=== PATIENT | male | born 1985 | race Caucasian/White ===

== ENCOUNTER → 2017-07-07 | Outpatient (CLI) | payer OTHER ==
[2017-07-07 18:11] LABS: LYME DISEASE AB IGG NEG (NEG)
[2017-07-07 18:14] LABS: LYME DISEASE AB IGM EQUIVOCAL (NEG)
[2017-07-07 18:19] LABS: BLOOD UREA NITROGEN 14 mg/dl (7-18); BUN/CREATININE RATIO 13.3 (10-20); CALCIUM 9.3 mg/dl (8.5-10.1); CARBON DIOXIDE 24 mmol/L (21-32); CHLORIDE 107 mmol/L (98-107); CHOLESTEROL 221 mg/dl (0-200); CREATININE 1.05 mg/dl (0.60-1.40); GLUCOSE,FASTING 102 mg/dl (70-99); POTASSIUM 4.3 mmol/L (3.5-5.1); SODIUM 137 mmol/L (136-145)
[2017-07-07 18:20] LABS: CHOLESTEROL/HDL RATIO 9.6; HDL CHOLESTEROL 23 mg/dl; LDL CHOLESTEROL CALCULATED 140 mg/dl; TRIGLYCERIDES 290 mg/dl (0-150); VERY LOW DENSITY LIPOPROT CALC 58 mg/dl
== END | disposition home or self-care (01) ==
LOC: C.LABPBG 13:17
PROVIDERS: ATTEND Physician Assistant
DX: Z00.00 Encounter for general adult medical examination without abnormal findings (principal); T14.90XA Injury, unspecified, initial encounter; W57.XXXA Bitten or stung by nonvenomous insect and other nonvenomous arthropods, initial encounter

== ENCOUNTER → 2017-09-13 | Outpatient (CLI) | payer OTHER ==
--- NOTE | 2017-09-13 12:38 | DIAGNOSTIC IMAGING REPORT ---
LUMBAR SPINE 5 VIEWS HISTORY: M54.5 Acute lumbar back [id number].XXXA Fall, accidental COMPARISON: None. FINDINGS: There is no fracture. No subluxation. Moderate disc space narrowing at L5-S1. IMPRESSION: No fracture or subluxation within the lumbar spine. Moderate disc space narrowing at L5-S1. Electronically signed by: Jeremy Molina M.D. 09/13/2017 12:36 PM Dictated Date/Time: 09/13/2017 12:35 PM
== END | disposition home or self-care (01) ==
LOC: C.RAD 12:00
PROVIDERS: ATTEND Family Medicine
DX: M54.5 Low back pain (principal); W19.XXXA Unspecified fall, initial encounter